=== PATIENT | male | born 1960 | race Caucasian/White ===

== ENCOUNTER 2022-05-06 11:18 | Outpatient (CLI) | payer OTHER, SELFPAY ==
[2022-05-06 20:27] LABS: Cholesterol 148 mg/dL (0-200); HDL Direct 47 mg/dL; Triglycerides 59 mg/dL (<150)
[2022-05-06 20:40] LABS: LDL Cholesterol Direct 70 mg/dL
[2022-05-06 20:56] LABS: Alanine Aminotransferase 43 U/L (6-50); Albumin Level 3.6 g/dL (3.5-5.1); Alkaline Phosphatase 58 U/L (38-126); Anion Gap 5 mmol/L (8-16); Aspartate Amino Transferase 53 U/L (17-59); Bilirubin,Total 0.8 mg/dL (0.2-1.3); Blood Urea Nitrogen 18 mg/dL (9-20); Calcium 8.8 mg/dL (8.4-10.2); Carbon Dioxide 29 mmol/L (22-30); Chloride 98 mmol/L (98-107); Estimated Glomerular Filt Rate > 60; Glucose 86 mg/dL (65-110); Potassium 4.5 mmol/L (3.4-5.0); Sodium 132 mmol/L (137-145)
== END 2022-05-06 11:19 | disposition home or self-care (01) ==
LOC: ANHGOSHLAB 11:20
PROVIDERS: Internal Medicine; PCP Family Medicine; Visit Provider Family Medicine
DX: E78.5 Hyperlipidemia, unspecified (principal); Z13.228 Encounter for screening for other metabolic disorders
CPT/HCPCS: 36415; 80053; 80061

== ENCOUNTER 2022-05-13 00:25 | Day surgery (SDC) | payer OTHER, SELFPAY ==
[2022-05-06 12:22] VITALS: BMI 26.6
--- NOTE | 2022-05-08 14:00 | SUR.PREOP ---
Patient called today wanting to know if Dr. Reyna could band his hemorrhoids at the time of the colonoscopy. Patient was told we would check with Dr. Reyna and call the patient back. [address] Reyna about the patient's concerns. Dr. Reyna stated he does not do hemorrhoid banding and said the patient could see Dr. Chapman for his colonoscopy and hemorrhoid banding if he wanted them addressed with the colonoscopy procedure. 1350 I called the patient and we discussed what Dr. Reyna had said. Patient decided he wanted to keep his appointment with Dr Reyna on the because he said he was over due for his colonoscopy and he would have his hemorrhoids addressed at another time. 1400 Dr Reyna made aware the the patient would keep his May 13 appointment with him.
--- NOTE | 2022-05-12 16:42 | PM.HPGS ---
History of Present Illness History of Present Illness Consent: Risks, benefits, and alternatives have been discussed and questions answered. Patient agrees to proceed with procedure. Chief complaint: neoplasm screening Narrative: Harvey Moran Jr. is a 61 year old male Referred for colon cancer screening. His last colonoscopy was 10 years ago. Review of Systems Review of Systems: All systems reviewed & are unremarkable except as noted in HPI and below PMFSH Past Medical History Medical History Allergies Chronic fatigue and malaise Depression Dupuytren's contracture of left hand Hyperlipidemia Hypotestosteronism Impotence of organic origin Migraine aura without headache Recurrent major depressive disorder Screening for metabolic disorder Subjective tinnitus Surgical History Surgical History History of eye surgery History of hand surgery Family History Family History Father Diabetes mellitus Mother Diabetes mellitus Social History Social History Smoking status: Never smoker Alcohol intake: current Drinks per week: 15 Alcohol use details: social Substance use: current Substance use type: marijuana Other substance usage details: 2x week Living arrangements: with family Occupation/Education: occupation Additional occupation/education comments: Construction Spiritual care concerns: No Meds Home Medications and Allergies Home Medications Medication Instructions Recorded Confirmed Type omeprazole 20 mg capsule,delayed 20 mg PO DAILY 03/19/20 05/13/22 History release baclofen 10 mg tablet 10 mg PO BID PRN chronic back pain 05/22/21 05/13/22 Rx #30 tabs atorvastatin 80 mg tablet See Rx Instructions .Route 02/05/22 05/13/22 Rx .COMPLEX #90 tabs hydrocodone 7.5 mg-acetaminophen 1 tablet PO QHS PRN pain #10 tabs 05/05/22 05/13/22 Rx 325 mg tablet testosterone cypionate 200 mg/mL 600 mg IM MONTHLY 05/06/22 05/13/22 History intramuscular oil Allergies Allergy/AdvReac Type Severity Reaction Status Date / Time Penicillins Allergy Unknown Unknown Verified 05/13/22 06:42 Tetanus Vaccines and Toxoid Allergy Unknown Unknown Verified 05/13/22 06:42 Exam Const: General: alert Orientation/consciousness: patient oriented x3 Resp: Auscultation: clear to auscultation bilaterally Cardio: Rhythm: regular rhythm GI: GI Palp: Yes Soft to palpation and No Tenderness to palpation present (GI) Neuro: General: patient oriented x3 Assessment and Plan Assessment and plan (1) Colon cancer screening: Code(s): Z12.11 - Encounter for screening for malignant neoplasm of colon Status: Acute Assessment and Plan: Colonoscopy with possible biopsy or polypectomy or cautery or injection of substances.
[2022-05-13 06:43] VITALS: BP 126/90; PULSE 71; RESP 17; TEMP 36.1; O2SAT 100; BMI 25.9
[2022-05-13] MEDS: LACTATED RINGERS 1,000 ML 150 ML IV CONT (07:03)
--- NOTE | 2022-05-13 07:44 | WPDANESEPPF ---
Anes - Initial Pre Proc Eval Procedure: Operation Date: 05/13/22 08:00 Proposed Procedures p Screening Colonoscopy - Ramon Reyna MD Date/Time: 05/13/22 07:44 Surgeon: Ramon Reyna MD Pre Op Diagnosis: neoplasm screening Patient Data Age: 61 Gender: M Height: 1.73 m Weight: 77.6 kg Last Vital Signs Temp 96.9 F L 05/13/22 06:43 Pulse 71 05/13/22 06:43 Resp 17 05/13/22 06:43 BP 126/90 05/13/22 06:43 Pulse Ox 100 05/13/22 06:43 O2 Del Method Room Air 05/13/22 06:43 Allergies Allergy/AdvReac Type Severity Reaction Status Date / Time Penicillins Allergy Unknown Unknown Verified 05/13/22 06:42 Tetanus Vaccines and Toxoid Allergy Unknown Unknown Verified 05/13/22 06:42 Home Medications Medication Instructions Recorded Confirmed Type omeprazole 20 mg capsule,delayed 20 mg PO DAILY 03/19/20 05/13/22 History release baclofen 10 mg tablet 10 mg PO BID PRN chronic back pain 05/22/21 05/13/22 Rx #30 tabs atorvastatin 80 mg tablet See Rx Instructions .Route 02/05/22 05/13/22 Rx .COMPLEX #90 tabs hydrocodone 7.5 mg-acetaminophen 1 tablet PO QHS PRN pain #10 tabs 05/05/22 05/13/22 Rx 325 mg tablet testosterone cypionate 200 mg/mL 600 mg IM MONTHLY 05/06/22 05/13/22 History intramuscular oil Patient hx anesthesia problems: none Family hx anesthesia problems: none Results Review: All pre-operative results and documents have been reviewed as part of the pre-operative evaluation. [facility] [place] Past Medical History Medical History Allergies Chronic fatigue and malaise Depression Dupuytren's contracture of left hand Hyperlipidemia Hypotestosteronism Impotence of organic origin Migraine aura without headache Recurrent major depressive disorder Screening for metabolic disorder Subjective tinnitus Surgical History Surgical History History of eye surgery History of hand surgery Family History Family History Father Diabetes mellitus Mother Diabetes mellitus Social History Social History Smoking status: Never smoker Alcohol intake: current Drinks per week: 15 Alcohol use details: social Substance use: current Substance use type: marijuana Other substance usage details: 2x week Living arrangements: with family Occupation/Education: occupation Additional occupation/education comments: Construction Spiritual care concerns: No Anes - Eval Final PreProcedure Day of Procedure 05/13/22 07:44 Patient weight: normal Heart: regular rate and rhythm Lungs: clear to auscultation Airway: Mallampati scale class II Neurological: alert and oriented Last oral intake: >/= 8 hours ASA classification: II Emergent: no Anesthetic plan: proceed Anesthesia type and monitoring: general GIVS and standard monitoring Results Review: All pre-operative results and documents have been reviewed as part of the pre-operative evaluation. Informed Consent: The patient's anesthetic plan and its attendant risks and benefits were discussed with the patient/family/POA. Questions were solicited and answers provided to the satisfaction of the patient/family/POA.
[2022-05-13 08:12] VITALS: BP 107/69; PULSE 60; RESP 15; O2SAT 97
[2022-05-13 08:22] VITALS: BP 121/68; PULSE 61; RESP 22; O2SAT 100
[2022-05-13 08:32] VITALS: BP 125/89; PULSE 63; RESP 21; O2SAT 100
== END 2022-05-13 08:44 | disposition home or self-care (01) ==
PROVIDERS: PCP Family Medicine; Visit Provider Internal Medicine Gastroenterology
PROC: 0DJD8ZZ Inspection of Lower Intestinal Tract, Via Natural or Artificial Opening Endoscopic (ICD-10-PCS; CPT 45378; principal; 2022-05-13 08:00)
DX: Z12.11 Encounter for screening for malignant neoplasm of colon (principal); K64.1 Second degree hemorrhoids; K57.30 Diverticulosis of large intestine without perforation or abscess without bleeding; E78.5 Hyperlipidemia, unspecified; F33.9 Major depressive disorder, recurrent, unspecified; Z79.890 Hormone replacement therapy; F12.90 Cannabis use, unspecified, uncomplicated
CPT/HCPCS: 45378; J2704; J7120

== ENCOUNTER 2022-11-25 15:16 | Emergency (ER) | payer OTHER, SELFPAY ==
[2022-11-25] VITALS (16 sets, daily range): BP systolic 116–130; BP diastolic 75–88; PULSE 63–73; RESP 14–25; TEMP 35.9; O2SAT 96–100
--- NOTE | 2022-11-25 15:23 | ECG_ITS ---
Measurements Intervals [place] Rate: 69 P: 62 KS: 177 QRS: 2 QRSD: 106 T: 58 QT: 398 QTc: 427 Interpretive Statements SINUS RHYTHM NORMAL ECG NO PREVIOUS ECG AVAILABLE FOR COMPARISON Electronically Signed On 11-26-2022 9:43:15 CDT by Bryant Torres M.D.
[2022-11-25 15:39] LABS: Basophils Absolute Auto 0.1 K/mm3 (0.0-0.1); Basophils Percent Auto 0.8 % (0.2-1.2); Eosinophils Absolute Auto 0.2 K/mm3 (0-0.3); Eosinophils Percent Auto 2.5 % (0-4.4); Hematocrit 49.7 % (42.0-52.0); Hemoglobin 17.4 g/dL (14.0-18.0); Immature Granulocyte Absolute 0.03 K/mm3 (0.00-0.031); Immature Granulocyte Percent A 0.5 % (0-0.5); Lymphocytes Absolute Auto 2.04 K/mm3 (0.9-3.2); Lymphocytes Percent Auto 31.7 % (18.3-44.2); Mean Corpuscular Hemoglobin 33.1 pg (26-34); Mean Corpuscular Volume 94.7 fl (80-100); Mean Platelet Volume 8.9 fl (7.4-10.4); Monocytes Absolute Auto 0.8 K/mm3 (0.1-0.6); Monocytes Percent Auto 12.9 % (2.6-8.5); Neutrophils Absolute Auto 3.3 K/mm3 (1.3-6.7); Neutrophils Percent Auto 51.6 % (45.5-73.1); Platelet Count Result 312 k/mm3 (150-375); Red Blood Count 5.25 M/mm3 (4.6-6.20); Red Cell Distribution Width 12.6 % (11.5-14.5); White Blood Count 6.4 K/mm3 (4.5-10.0)
[2022-11-25 15:56] LABS: Alanine Aminotransferase 33 U/L (6-50); Albumin Level 4.4 g/dL (3.5-5.1); Alkaline Phosphatase 52 U/L (38-126); Anion Gap 16 mmol/L (8-16); Aspartate Amino Transferase 41 U/L (17-59); Blood Urea Nitrogen 18 mg/dL (9-20); Calcium 9.4 mg/dL (8.4-10.2); Carbon Dioxide 19 mmol/L (22-30); Chloride 97 mmol/L (98-107); Estimated CRCL calculation 71 ml/min; Estimated Glomerular Filt Rate > 60; Glucose 112 mg/dL (65-110); Potassium 4.1 mmol/L (3.4-5.0); Sodium 132 mmol/L (137-145)
--- NOTE | 2022-11-25 16:02 | PC.NURSE ---
Pt having multiple episodes of desaturation into the 50 and 70s. Pt immediately awaken ans set up in bed and nasal cannula applied to 3L. Sats increased to high 90s. Pt mentating appropriately. Dr. Silva made aware.
--- NOTE | 2022-11-25 16:02 | ED.SYNCOPE ---
HPI - Syncope General Chief Complaint: Syncope Stated Complaint: SYNCOPE Time Seen by Provider: 11/25/22 15:54 Source: patient Mode of arrival: ambulatory Limitations: no limitations History of Present Illness HPI narrative: 62 years old white male came to the emergency room by ambulance from the orthopedic clinic with near syncope/syncope. Patient had a diagnosis of elbow tendinitis bilaterally, went to the orthopedic clinic today for cortisone injection. Immediately after the injection patient started feeling weird, lightheadedness, blacking out with vomiting. The patient reported having similar symptoms when he have IV access. Related Data Home Medications Medication Instructions Recorded Confirmed omeprazole 20 mg capsule,delayed 20 mg PO DAILY 03/19/20 11/23/22 release testosterone cypionate 200 mg/mL 600 mg IM MONTHLY 05/06/22 11/23/22 intramuscular oil Allergies Allergy/AdvReac Type Severity Reaction Status Date / Time Penicillins Allergy Unknown Unknown Verified 11/23/22 08:40 Tetanus Vaccines and Toxoid Allergy Unknown Unknown Verified 11/23/22 08:40 Review of Systems Review of Systems: All systems reviewed & are unremarkable except as noted in HPI and below PMFSH Past Medical History Medical History Allergies Chronic fatigue and malaise Depression Dupuytren's contracture of left hand Hyperlipidemia Hypotestosteronism Impotence of organic origin Migraine aura without headache Recurrent major depressive disorder Screening for metabolic disorder Subjective tinnitus Surgical History Surgical History History of eye surgery History of hand surgery Family History Family History Father Diabetes mellitus Mother Diabetes mellitus Social History Social History Smoking status: Never smoker Alcohol intake: current Drinks per week: 15 Alcohol use details: social Substance use: current Substance use type: marijuana Other substance usage details: 2x week Living arrangements: with family Occupation/Education: occupation Additional occupation/education comments: Construction Spiritual care concerns: No Exam Narrative: General appearance: Well-developed, well-nourished, hyperventilating, restless Skin: Normal color Head: Normocephalic, nontraumatic Eyes: Clear conjunctiva ENT: Oropharynx normal, ears normal, nose normal Neck: Supple, nontender Chest and respiratory: Airway patent, no respiratory distress, no accessory muscle use Heart: Regular rate/rhythm Abdomen: Soft, nontender, no organomegaly, quiet bowel sounds Vascular: Normal peripheral pulses, normal capillary refill. Musculoskeletal: Normal range of motion, nontender back Neurologic: Alert and oriented ?3, WAREHOU[employer] is normal as tested, no gross motor deficit Course Reevaluation(s) Reevaluation #1: Currently patient feeling much better, asymptomatic, after having IV fluid, Ventimask without oxygen supplement, and Ativan 1 mg IV. Date: 11/25/22 Time: 18:56 Vital Signs Vital signs: Vital Signs Temperature 35.9 C L 11/25/22 15:17 Pulse Rate 69 11/25/22 15:17 Respiratory Rate 25 H 11/25/22 15:17 Blood Pressure 119/75 11/25/22 15:17 Pulse Oximetry 100 11/25/22 15:17 Oxygen Delivery Room Air 11/25/22 15:17 Temperature 35.9 C L 11/25/22 15:17 Pulse Rate 72 11/25/22 17:16 Respiratory Rate 16 11/25/22 17:01 Blood Pressure 130/88 11/25/22 17:16 Pulse Oximetry 99 11/25/22 17:15 Oxygen Deli
[2022-11-25] MEDS: SODIUM CHLORIDE 0.9% IV 1,000 ML 999 ML IV CONT (16:16)
[2022-11-25] MEDS: LORazepam INJ (*CRX) 2 MG/ML VIAL 1 MG IV PUSH (16:16)
== END 2022-11-25 19:09 | disposition home or self-care (01) ==
PROVIDERS: Emergency Provider Emergency Medicine; PCP Family Medicine
DX: R55 Syncope and collapse (principal); E78.5 Hyperlipidemia, unspecified
CPT/HCPCS: 36415; 80053; 85025; 93005; 96361; 96374; 99284; J2060; J7030

== ENCOUNTER 2023-05-13 09:46 | Outpatient (CLI) | payer OTHER, SELFPAY ==
[2023-05-13 19:07] LABS: Alanine Aminotransferase 36 U/L (6-50); Alkaline Phosphatase 55 U/L (38-126); Anion Gap 5 mmol/L (8-16); Aspartate Amino Transferase 48 U/L (17-59); Bilirubin,Total 0.9 mg/dL (0.2-1.3); Blood Urea Nitrogen 16 mg/dL (9-20); Calcium 9.6 mg/dL (8.4-10.2); Carbon Dioxide 29 mmol/L (22-30); Chloride 99 mmol/L (98-107); Cholesterol 142 mg/dL (0-200); Estimated Glomerular Filt Rate > 60; Glucose 86 mg/dL (65-110); HDL Direct 42 mg/dL; Potassium 4.5 mmol/L (3.4-5.0); Sodium 133 mmol/L (137-145); Triglycerides 83 mg/dL (<150)
[2023-05-13 19:17] LABS: LDL Cholesterol Direct 74 mg/dL
[2023-05-13 19:29] LABS: Basophils Absolute Auto 0.1 K/mm3 (0.0-0.1); Basophils Percent Auto 0.9 % (0.2-1.2); Eosinophils Absolute Auto 0.1 K/mm3 (0-0.3); Eosinophils Percent Auto 2.2 % (0-4.4); Hematocrit 51.2 % (42.0-52.0); Hemoglobin 17.3 g/dL (14.0-18.0); Immature Granulocyte Absolute 0.02 K/mm3 (0.00-0.031); Immature Granulocyte Percent A 0.3 % (0-0.5); Lymphocytes Percent Auto 29.2 % (18.3-44.2); Mean Corpuscular HGB Conc 33.8 g/dl (32-36); Mean Corpuscular Hemoglobin 32.5 pg (26-34); Mean Corpuscular Volume 96.2 fl (80-100); Mean Platelet Volume 9.4 fl (7.4-10.4); Monocytes Absolute Auto 0.8 K/mm3 (0.1-0.6); Monocytes Percent Auto 13.7 % (2.6-8.5); Neutrophils Absolute Auto 3.1 K/mm3 (1.3-6.7); Neutrophils Percent Auto 53.7 % (45.5-73.1); Platelet Count Result 330 k/mm3 (150-375); Red Blood Count 5.32 M/mm3 (4.6-6.20); Red Cell Distribution Width 13.1 % (11.5-14.5); White Blood Count 5.8 K/mm3 (4.5-10.0)
[2023-05-13 19:36] LABS: Prostate Specific Antigen 1.3 ng/mL (< OR = 4.0)
[2023-05-13 20:05] LABS: Hemoglobin A1C 5.4 % (<5.7)
== END 2023-05-13 09:47 | disposition home or self-care (01) ==
LOC: ANHGOSHLAB 09:47
PROVIDERS: PCP Family Medicine; Visit Provider Family Medicine
DX: Z13.228 Encounter for screening for other metabolic disorders (principal); Z12.5 Encounter for screening for malignant neoplasm of prostate; R73.01 Impaired fasting glucose; R53.83 Other fatigue; Z13.220 Encounter for screening for lipoid disorders
CPT/HCPCS: 36415; 80053; 80061; 83036; 84153; 85025; G0103

== ENCOUNTER 2023-05-24 08:31 | Outpatient (CLI) | payer OTHER, SELFPAY ==
--- NOTE | 2023-06-15 16:22 | WPDHOMESLEEP ---
Sleep Study - Home Unattended Date of Study: 05/24/23 Ordering Provider: Solitario Cummings DO Interpreting Provider: Karli Arnold MD Home Sleep Study Type: Watch PAT Height: 1.73 m Weight: 76.204 kg Body Mass Index: 25.5 Neck Circumference (inches): 15.5 Sunburst: 3 Reason for Sleep Study Non restorative sleep, fatigue, insomnia, difficulty falling asleep Sleep History Harvey Moran jr is a 63-year-old man with non refreshing sleep. He has had a change in his work hours which has increased the difficulty in falling to sleep. Trazodone has helped with insomnia. He did not complete a sleep survey therefore there is not much sleep history is to review. Habits:??Tobacco: never smoker Alcohol:none Recreational substances: none PMFSH Past Medical History Medical History Allergies Chronic fatigue and malaise Depression Dupuytren's contracture of left hand Hyperlipidemia Hypotestosteronism Impotence of organic origin Migraine aura without headache Recurrent major depressive disorder Screening for metabolic disorder Subjective tinnitus Surgical History Surgical History History of eye surgery History of hand surgery Family History Family History Father Diabetes mellitus Mother Diabetes mellitus Social History Social History Social History: caffeine minimal coffee daily Smoking status: Never smoker Alcohol intake: current Drinks per week: 7 Alcohol use details: Beers Substance use: current Substance use type: marijuana Living arrangements: with family Occupation/Education: occupation Additional occupation/education comments: Construction Spiritual care concerns: No Medications Home Medications Medication Instructions Recorded Confirmed Type testosterone cypionate 200 mg/mL 600 mg IM MONTHLY 05/06/22 05/13/23 History intramuscular oil baclofen 10 mg tablet 10 mg PO BID PRN chronic back pain 03/02/23 05/13/23 Rx #30 tabs atorvastatin 80 mg tablet See Rx Instructions .Route 04/20/23 05/13/23 Rx .COMPLEX #90 tabs famotidine 20 mg tablet 20 mg PO DAILY #90 tabs 05/13/23 05/13/23 Rx hydrocodone 7.5 mg-acetaminophen 1 tablet PO QHS PRN pain #10 tabs 05/13/23 05/13/23 Rx 325 mg tablet trazodone 50 mg tablet 50 mg PO QHS PRN insomnia #30 tabs 05/13/23 05/13/23 Rx Sleep Procedure The sleep study was completed using WatchPAT a technically adequate device with seven channels: peripheral arterial tone, actigraphy, body position, snore, respiratory movement, pulse oximetry, sleep staging, and heart rate. Prior to using the device, the patient received verbal and written instructions for its application and was provided with the help desk phone number for additional telephonic instruction with 24-hour availability of qualified personnel to answer questions. Sleep Architecture The total recording time is 8 hours 25 minutes. The total sleep time is 7 hours 30 minutes. Sleep latency is 23 minutes. REM latency is 127 minutes. The patient had 9 episodes of waking. Sleep architecture shows 16.5% deep sleep, 61.2% light sleep, and 22.3% stage REM. The patient spent 408 minutes, 90.6% of total sleep time in the supine position. Respiratory Analysis The overall AHI is 7.5. The central AHI is 0. The REM AHI was 21.9. the supine AHI was 8.2, the nonsupine AHI is 1.4. There was no evidence of Oscar-Arrington respirations. Oximetry Data The oxygen desaturation index is 7.5. The mean saturation is 92%, the lowest saturation is 82%, and the patient spent 2.2 minutes, 0.5%% of the sleep time, below 88%. Snoring Profile Snoring was present, average intensity 43 dB. The patient snored above 45 dB for 113.4 minutes, 25.2% of the sleep time. Cardiac
[2023-06-15 16:40] VITALS: BMI 25.5
== END 2023-05-25 07:30 | disposition home or self-care (01) ==
PROVIDERS: PCP Family Medicine; Visit Provider Family Medicine
DX: G47.10 Hypersomnia, unspecified (principal); G47.33 Obstructive sleep apnea (adult) (pediatric)
CPT/HCPCS: 95800